=== PATIENT | male | born 1960 | race Caucasian/White ===

== ENCOUNTER 2019-07-16 14:04 | Inpatient (IN) | payer BC ==
[2019-07-13 09:04] LABS: MICROSCOPIC NOT IND
[2019-07-13 09:09] LABS: BASOPHILS # (AUTO) 0.04 x10^3/uL (0-0.1); BASOPHILS % (AUTO) 1 % (0-1); EOSINOPHILS % (AUTO) 3 % (1-7); LYMPHOCYTES # (AUTO) 1.82 x10^3/uL (1-3.4); LYMPHOCYTES % (AUTO) 29 % (22-44); MD NO; MEAN CORPUSCULAR HEMOGLOBIN 30.5 pg (27.5-34.5); MEAN CORPUSCULAR HGB CONC 33.5 g/dL (33.2-36.2); MEAN CORPUSCULAR VOLUME 91.1 fL (81-97); MEAN PLATELET VOLUME 7.7 fL (7.4-10.4); MONOCYTES # (AUTO) 0.59 x10^3/uL (0.2-0.8); MONOCYTES % (AUTO) 10 % (2-9); NEUTROPHILS # (AUTO) 3.57 x10^3/uL (1.8-6.8); NEUTROPHILS % (AUTO) 57 % (42-75); PLATELET COUNT 377 x10^3/uL (130-400); RED BLOOD COUNT 4.47 x10^6/uL (4.38-5.82); RED CELL DISTRIBUTION WIDTH 13.5 % (9.4-14.8)
[2019-07-13 09:14] LABS: INTERNATIONAL NORMALIZED RATIO 1.01 (0.93-1.1); PROTHROMBIN TIME 10.7 Seconds (9.6-11.5)
[2019-07-13 09:15] LABS: ALBUMIN 3.6 g/dL (3.4-5.0); ANION GAP 10 mmol/L (5-15); CHLORIDE 99 mmol/L (98-107)
[2019-07-13 09:18] LABS: ALANINE AMINOTRANSFERASE 49 U/L (12-78); ALKALINE PHOSPHATASE 61 U/L (45-117); BILIRUBIN,TOTAL 0.6 mg/dL (0.2-1.0); CREATININE 1.12 mg/dL (0.7-1.3); TOTAL PROTEIN 8.1 g/dL (6.4-8.2)
[~2019-07-16] VITALS: Ht 175.3 cm; Wt 101.2 kg
[~2019-07-16 14:04] MED LIST: ATOR10TA9 PO; ENAL20TA PO; HYDR25TA6 PO; METF500T17 PO; NIFE90TA53 PO; TAMS-11 PO
[2019-07-16] MEDS ORDERED: LACTATED RINGERS 1,000 ML IV SCH (14:23)
[2019-07-16] MEDS ORDERED: CHLORHEXIDINE 15 ML UDC MM ONE (14:30)
[2019-07-16] MEDS ORDERED: CHLORHEXIDINE 15 ML UDC ONE (14:33)
[2019-07-16] MEDS ORDERED: MIDAZOLAM 1 MG/ML, 2ML ONE (15:23)
[2019-07-16] MEDS ORDERED: PROPOFOL 10 MG/ML, 100ML IV ONE (15:27)
[2019-07-16] MEDS ORDERED: CEFAZOLIN PMX 2GM/100ML ONE (15:27)
[2019-07-16] MEDS ORDERED: SUGAMMADEX 200 MG/2 ML IVPush ONE (15:27)
[2019-07-16] MEDS ORDERED: SUCCINYLCHOLINE 20 MG/ML, 10ML ONE (15:27)
[2019-07-16] MEDS ORDERED: ROCURONIUM 10 MG/ML,10ML ONE (15:27)
[2019-07-16] MEDS ORDERED: KETOROLAC 30 MG/1 ML IV PRN (16:00)
[2019-07-16] MEDS ORDERED: LABETALOL 5MG/ML, 20ML IV PRN (16:00)
[2019-07-16] MEDS ORDERED: hydrALAzine 20 MG/ML, 1ML IV PRN (16:00)
[2019-07-16] MEDS ORDERED: METOCLOPRAMIDE 5 MG/ML, 2ML IV PRN (16:00)
[2019-07-16] MEDS ORDERED: OXYcodone 5 MG/5 ML ORAL.SOL UDC PO PRN (16:00)
[2019-07-16] MEDS ORDERED: ONDANSETRON 2MG/ML, 2ML IVPush PRN (16:00)
[2019-07-16] MEDS ORDERED: ALBUTEROL SULFATE 2.5 MG/3 ML NPPB PRN (16:00)
[2019-07-16] MEDS ORDERED: PROMETHAZINE 25 MG/ML, 1ML IV PRN (16:00)
[2019-07-16] MEDS ORDERED: HYDROmorphone 1 MG/ML, 1ML INJ IV PRN (16:00)
[2019-07-16] MEDS ORDERED: MEPERIDINE/PF 25MG/0.5ML IVPush PRN (16:00)
[2019-07-16] MEDS ORDERED: FENTANYL PF 100 MCG/2ML IV PRN (16:00)
[2019-07-16] MEDS ORDERED: DIAZEPAM 5 MG/ML, 2ML IV PRN ×2 (16:00)
[2019-07-16] MEDS ORDERED: FENTANYL PF 100 MCG/2ML ONE (17:23)
[2019-07-16] MEDS ORDERED: OPIUM/BELLADONNA SUPP.RECT 16.2-60 MG ONE (18:08)
[2019-07-16] MEDS ORDERED: OPIUM/BELLADONNA SUPP.RECT 16.2-60 MG PR PRN ×2 (18:30→22:30)
[2019-07-16] MEDS ORDERED: morphine SULFATE 10 MG/ML, 1ML IV PRN (20:30)
[2019-07-16] MEDS ORDERED: ONDANSETRON 2MG/ML, 2ML IV PRN (20:30)
[2019-07-16] MEDS ORDERED: ATORVASTATIN 10 MG TABLET PO SCH (21:00)
[2019-07-16 23:37] VITALS: BP 127/83
[2019-07-17] MEDS: LACTATED RINGERS 1,000 ML IV SCH ×2 (00:15→08:31)
[2019-07-17 04:13] VITALS: BP 113/69
[2019-07-17 08:00] VITALS: BP 129/82
[2019-07-17] MEDS ORDERED: metFORMIN 500 MG TABLET PO SCH (08:00)
[2019-07-17] MEDS ORDERED: niFEDipine ER 60 MG TABLET.ER PO SCH (09:00)
[2019-07-17] MEDS ORDERED: ENALAPRIL 20MG TABLET PO SCH (09:00)
[2019-07-17] MEDS ORDERED: HYDROCHLOROTHIAZIDE 25 MG TABLET PO SCH (09:00)
== END 2019-07-17 10:10 | disposition home or self-care (01) | DRG 713 ==
LOC: OR 14:04 → 4NE 19:15 → OR 23:00 → DCLOUNGE 07-17 09:56
PROVIDERS: ADMIT Urology; ATTEND Urology
PROC: 0VT08ZZ Resection of Prostate, Via Natural or Artificial Opening Endoscopic (ICD-10-PCS; principal; 2019-07-16 16:00)
DX: N40.1 Benign prostatic hyperplasia with lower urinary tract symptoms (principal); N13.8 Other obstructive and reflux uropathy; N32.0 Bladder-neck obstruction; E11.9 Type 2 diabetes mellitus without complications; E78.00 Pure hypercholesterolemia, unspecified; E78.5 Hyperlipidemia, unspecified; Z20.828 Contact with and (suspected) exposure to other viral communicable diseases; Z79.899 Other long term (current) drug therapy; Z83.3 Family history of diabetes mellitus; Z87.440 Personal history of urinary (tract) infections; Z79.84 Long term (current) use of oral hypoglycemic drugs
CPT/HCPCS: 36415; 80053; 81003; 82962; 85025; 85610; 85730; 87086; 88305; 93005; G0378; J2250; J2704; J3010; J0330; J0690; J2270; J7120; U0001-CS